=== PATIENT | male | born 2000 | race American Indian/Alaskan Native ===

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

== ENCOUNTER 2022-02-22 10:23 | Emergency (ER) | payer SELFPAY | END 2022-02-22 11:10 | disposition left against medical advice (07) | LOC: DL.ED 10:23 | DX: Z53.21 Procedure and treatment not carried out due to patient leaving prior to being seen by health care provider (principal) ==

== ENCOUNTER 2024-06-14 13:24 | Emergency (ER) | payer BC ==
[2024-06-14] MEDS: Bacitracin Oint 1 GM U/D Packet TOP ONE (16:02)
== END 2024-06-14 16:26 | disposition home or self-care (01) ==
LOC: DL.ED 13:24
DX: S61.201A Unspecified open wound of left index finger without damage to nail, initial encounter (principal); Z86.16 Personal history of COVID-19; W26.8XXA Contact with other sharp object(s), not elsewhere classified, initial encounter; Y93.89 Activity, other specified
CPT/HCPCS: 64450; 73140-F1; 99283; 99283-25; A9270-GY